=== PATIENT | female | born 2005 | race African-American/Black ===

== ENCOUNTER 2023-12-27 17:30 | Emergency (ER) | payer OTHER ==
[2023-12-27] MEDS ORDERED: ACETAMINOPHEN 500 MG TABLET (FP) ONE (17:39)
[2023-12-27] MEDS: ACETAMINOPHEN 500 MG TABLET (FP) PO ONE (17:42)
[2023-12-27 18:00] VITALS: BP 105/74; RESP 16; BMI 19.3
[2023-12-27] MEDS: KETOROLAC TROMETHAMINE 15 MG/ML VIAL IVPUSH ONE (18:20)
[2023-12-27] MEDS: SODIUM CHLORIDE 1,000 ML IV STA (18:20)
[2023-12-27] MEDS ORDERED: KETOROLAC TROMETHAMINE 15 MG/ML VIAL ONE (18:21)
[2023-12-27 18:54] VITALS: PULSE 112; TEMP 99.3
[2023-12-27] MEDS: SODIUM CHLORIDE 1,000 ML IV ONE (19:17)
[2023-12-27] MEDS ORDERED: OSELTAMIVIR PHOSPHATE 75 MG CAPSULE ONE (19:56)
[2023-12-27] MEDS: OSELTAMIVIR PHOSPHATE 75 MG CAPSULE PO ONE (19:59)
== END 2023-12-27 20:12 | disposition home or self-care (01) ==
LOC: FER 17:30
PROC: 3E0333Z Introduction of Anti-inflammatory into Peripheral Vein, Percutaneous Approach (ICD-10-PCS; principal; 2023-12-27)
PROC: 3E0337Z Introduction of Electrolytic and Water Balance Substance into Peripheral Vein, Percutaneous Approach (ICD-10-PCS; 2023-12-27)
PROC: 3E0337Z Introduction of Electrolytic and Water Balance Substance into Peripheral Vein, Percutaneous Approach (ICD-10-PCS; 2023-12-27)
DX: R50.9 Fever, unspecified (principal); R51.9 Headache, unspecified; R53.81 Other malaise; R53.83 Other fatigue; R63.0 Anorexia; B34.9 Viral infection, unspecified; J10.1 Influenza due to other identified influenza virus with other respiratory manifestations; Z20.822 Contact with and (suspected) exposure to COVID-19
CPT/HCPCS: 0241U-QW; 99284-25